=== PATIENT | female | born 1990 | race African-American/Black ===

== ENCOUNTER 2022-05-31 12:31 | Day surgery (SDC) | payer OTHER | END 2022-05-31 17:05 | disposition home health service (06) | LOC: CSHLD/OP 12:31 | PROVIDERS: ATTEND Family Medicine | DX: O10.913 Unspecified pre-existing hypertension complicating pregnancy, third trimester (principal); Z3A.33 33 weeks gestation of pregnancy; Z79.899 Other long term (current) drug therapy | CPT/HCPCS: 76815; 76819; 99282 ==

== ENCOUNTER 2022-06-18 15:55 | Day surgery (SDC) | payer OTHER | END 2022-06-18 19:15 | disposition home or self-care (01) | LOC: CSHLD/OP 15:55 | PROVIDERS: ATTEND Family Medicine | DX: O36.5930 Maternal care for other known or suspected poor fetal growth, third trimester, not applicable or unspecified (principal); Z3A.32 32 weeks gestation of pregnancy | CPT/HCPCS: 59025; 76815; 76819; 99282 ==

== ENCOUNTER 2022-06-28 18:00 | Inpatient (IN) | payer OTHER ==
[~2022-06-28 18:00] MED LIST: Bupivacaine 0.25% HCL 30 ML VIAL ONE
[2022-06-28 21:20] VITALS: BMI 40.2
[2022-06-28] MEDS ORDERED: Carboprost 250 MCG/ML AMP IM PRN (21:59)
[2022-06-28] MEDS ORDERED: HYDROcodone/Acetaminophen 5/325 mg Tablet PO PRN (21:59)
[2022-06-28] MEDS ORDERED: Penicillin G 2.5 MILL.units 2.5 MILL.UNITS in Premix Bag 1 BAG IVPB SCH (21:59)
[2022-06-28] MEDS ORDERED: Lidocaine 1% (PF) 30 ML VIAL SC PRN (21:59)
[2022-06-28] MEDS ORDERED: Ibuprofen 800 MG TAB PO PRN (21:59)
[2022-06-28] MEDS ORDERED: Misoprostol 200 MCG TAB PR PRN (21:59)
[2022-06-28] MEDS ORDERED: Penicillin G Potassium 5 MILL.UNITS in Sodium Chloride 0.9% 100 ML IVPB SCH (21:59)
[2022-06-28] MEDS ORDERED: Promethazine HCl 25 MG/ML VIAL IM PRN (21:59)
[2022-06-28] MEDS ORDERED: Diphenoxylate HCl/Atropine Tablet PO PRN (21:59)
[2022-06-28 22:11] LABS: Mean Corpuscular HGB CONC 34.1 g/dL (32.0-36.0); Mean Corpuscular Hemoglobin 28.2 pg (27.0-33.0); Mean Corpuscular Volume 82.8 fl (81.6-98.3); Mean Platelet Volume 9.5 fl (7.4-10.4); Platelet Count 329 10x3/uL (150-450); RBC Distribution Width 14.9 % (11.5-14.5); White Blood Cell (WBC) Count 8.9 10x3/uL (3.5-10.5)
[2022-06-28] MEDS: hydrALAZINE 20 MG/ML VIAL SLOW IVP PRN (22:13)
[2022-06-28] MEDS ORDERED: NS w/ Oxytocin 30 units 500 ML IV SCH (22:15)
[2022-06-28 22:28] LABS: ALT (SGPT) 10 U/L (8-55); AST (SGOT) 25 U/L (5-34); Albumin 3.8 g/dL (3.5-5.0); Alkaline Phosphatase 210 U/L (40-110); Anion Gap 18 mmol/L (10-20); BUN (Urea Nitrogen) 5 mg/dL (7.0-18.7); Bilirubin, Total 0.2 mg/dL (0.2-1.2); Calc. Creatinine Clearance 162 mL/min (70-130); Calcium 9.2 mg/dL (7.8-10.44); Carbon Dioxide 18 mmol/L (22-29); Chloride 106 mmol/L (98-107); Estimated GFR 103; Glucose 98 mg/dL (70-105); Potassium 3.8 mmol/L (3.5-5.1); Protein, Total 6.8 g/dL (6.0-8.3); Sodium 138 mmol/L (136-145)
[2022-06-28] MEDS ORDERED: Labetalol HCl 100 MG TAB PO SCH (22:30)
[2022-06-28] MEDS ORDERED: Magnesium Sulfate 20 gm/500 ml 20 GM/500 ML BAG ONE (22:41)
[2022-06-28] MEDS: CEFAZOLIN 2 GM in Sodium Chloride 0.9% 100 ML IVPB SCH (22:45)
[2022-06-28] MEDS ORDERED: Calcium Gluc 4.6 MEQ/10 ML (100 MG/ML) SLOW IVP PRN (22:45)
[2022-06-28] MEDS ORDERED: Labetalol HCl 100 MG/20 ML VIAL SLOW IVP PRN ×2 (22:45)
[2022-06-28] MEDS ORDERED: Magnesium Sulfate 20 gm/500 ml 4 GM/100 ML BAG IVPB SCH (22:45)
[2022-06-28] MEDS ORDERED: hydrALAZINE 20 MG/ML VIAL SLOW IVP PRN ×2 (22:45)
[2022-06-28] MEDS ORDERED: Magnesium Sulfate 20 gm/500 ml 20 GM/500 ML BAG IVPB SCH (22:45)
[2022-06-28] MEDS ORDERED: Lorazepam 2 MG/ML VIAL SLOW IVP PRN (22:45)
[2022-06-28 22:49] LABS: Syphilis Antibody Nonreactive (Nonreactive); Syphilis Antibody Index 0.35 S/CO (<1.00 Non-Reactive)
[2022-06-28 22:50] LABS: HBSAg Index 0.15 S/CO (0-0.99); Hep B Surf Ag Non-Reactive S/CO (NonReactive)
[2022-06-28] MEDS: Misoprostol 100 MCG TAB PO SCH (23:03)
[2022-06-28] MEDS: Lactated Ringer's 1,000 ML IV SCH (23:20)
[2022-06-28] MEDS: Ondansetron PF 4 MG/2 ML Vial IVP PRN (23:52)
[2022-06-29 00:03] LABS: SARS-CoV-2 NAA Rapid Test Not Detected (NotDetected)
[2022-06-29] MEDS: Misoprostol 100 MCG TAB PO SCH ×2 (03:30→07:30)
[2022-06-29] MEDS: CEFAZOLIN 2 GM in Sodium Chloride 0.9% 100 ML IVPB SCH (05:50)
[2022-06-29] MEDS: hydrALAZINE 20 MG/ML VIAL SLOW IVP PRN (08:38)
[2022-06-29] MEDS ORDERED: Butorphanol Tartrate 1 MG/ML VIAL ONE ×2 (09:13→10:40)
[2022-06-29] MEDS: Ondansetron PF 4 MG/2 ML Vial IVP PRN (09:17)
[2022-06-29] MEDS ORDERED: Fentanyl 2 mcg/Bup 0.1% Cadd 100 ML ONE (10:25)
[2022-06-29] MEDS ORDERED: Milk Of Magnesia 30 ML UDCUP PO PRN (18:58)
[2022-06-29] MEDS ORDERED: Lorazepam 2 MG/ML VIAL SLOW IVP PRN (18:58)
[2022-06-29] MEDS ORDERED: NS w/ Oxytocin 30 units 500 ML IV SCH (18:58)
[2022-06-29] MEDS ORDERED: diphenhydrAMINE 25 MG CAP PO PRN (18:58)
[2022-06-29] MEDS ORDERED: hydrALAZINE 20 MG/ML VIAL SLOW IVP PRN (18:58)
[2022-06-29] MEDS ORDERED: Calcium Gluc 4.6 MEQ/10 ML (100 MG/ML) SLOW IVP PRN (18:58)
[2022-06-29] MEDS ORDERED: Bisacodyl 10 MG SUPP PR PRN (18:58)
[2022-06-29] MEDS ORDERED: Labetalol HCl 100 MG/20 ML VIAL SLOW IVP SCH (18:58)
[2022-06-29] MEDS ORDERED: Magnesium Sulfate 20 gm/500 ml 20 GM/500 ML BAG IVPB SCH (18:58)
[2022-06-29] MEDS ORDERED: Ondansetron PF 4 MG/2 ML Vial IVP PRN (18:58)
[2022-06-29] MEDS ORDERED: Boostrix 0.5 ML (Tdap) VIAL (>/=7 yrs of age) IM ONE (18:58)
[2022-06-29] MEDS ORDERED: HYDROcodone/Acetaminophen 5/325 mg Tablet PO PRN (18:58)
[2022-06-29] MEDS ORDERED: Lanolin Ointment 7 GM TUBE TOP PRN (18:58)
[2022-06-29] MEDS ORDERED: Promethazine HCl 25 MG/ML VIAL IM PRN (18:58)
[2022-06-29] MEDS ORDERED: Ferrous Sulfate 325 MG TAB PO SCH (20:00)
[2022-06-29] MEDS: Ibuprofen 800 MG TAB PO SCH (20:34)
[2022-06-29] MEDS: Docusate 100 MG CAP PO SCH (20:35)
[2022-06-30] MEDS: Ibuprofen 800 MG TAB PO SCH ×3 (05:12→20:58)
[2022-06-30] MEDS: Lactated Ringer's 1,000 ML IV SCH ×2 (05:13→23:31)
[2022-06-30] MEDS: NIFEdipine XL 60 MG TAB PO SCH (08:14)
[2022-06-30] MEDS: Prenatal Vitamin 1 TAB PO SCH (20:00)
[2022-06-30] MEDS: Ferrous Sulfate 325 MG TAB PO SCH (20:00)
[2022-06-30] MEDS: Docusate 100 MG CAP PO SCH ×2 (20:00→20:58)
[2022-06-30] MEDS: Misoprostol 100 MCG TAB PO SCH (20:01)
[2022-06-30] MEDS: CEFAZOLIN 2 GM in Sodium Chloride 0.9% 100 ML IVPB SCH ×2 (23:31→23:32)
[2022-07-01] MEDS: Ibuprofen 800 MG TAB PO SCH ×3 (05:01→21:12)
[2022-07-01] MEDS: Prenatal Vitamin 1 TAB PO SCH (08:28)
[2022-07-01] MEDS: NIFEdipine XL 60 MG TAB PO SCH (08:28)
[2022-07-01] MEDS: Ferrous Sulfate 325 MG TAB PO SCH ×2 (08:28→17:42)
[2022-07-01] MEDS: Docusate 100 MG CAP PO SCH ×2 (08:28→21:12)
[2022-07-02] MEDS: Ibuprofen 800 MG TAB PO SCH (06:00)
[2022-07-02] MEDS: NIFEdipine XL 60 MG TAB PO SCH (08:50)
[2022-07-02] MEDS: Prenatal Vitamin 1 TAB PO SCH (08:51)
[2022-07-02] MEDS: Ferrous Sulfate 325 MG TAB PO SCH (08:51)
[2022-07-02] MEDS: Docusate 100 MG CAP PO SCH (08:51)
[2022-07-02 11:43] VITALS: BP 147/83; TEMP 98.5
== END 2022-07-02 15:30 | disposition home or self-care (01) | DRG 806 ==
LOC: CSHLD 19:08 → CSHPED 06-30 17:46
PROVIDERS: ADMIT Family Medicine; ATTEND Family Medicine
PROC: 10E0XZZ Delivery of Products of Conception, External Approach (ICD-10-PCS; principal; 2022-06-29)
PROC: 3E0P7VZ Introduction of Hormone into Female Reproductive, Via Natural or Artificial Opening (ICD-10-PCS; 2022-06-29)
DX: O36.5930 Maternal care for other known or suspected poor fetal growth, third trimester, not applicable or unspecified (principal); O10.92 Unspecified pre-existing hypertension complicating childbirth; Z37.0 Single live birth; Z3A.37 37 weeks gestation of pregnancy; Z20.822 Contact with and (suspected) exposure to COVID-19; Z88.0 Allergy status to penicillin; O99.824 Streptococcus B carrier state complicating childbirth; Z79.899 Other long term (current) drug therapy; Z79.82 Long term (current) use of aspirin; O11.4 Pre-existing hypertension with pre-eclampsia, complicating childbirth
CPT/HCPCS: 51702; 80053; 85027; 86780; 86850; 86900; 86901; 87340; J0360; J0595; J2405; J2550; J3475; J3490; J7120; S0020; U0002